=== PATIENT | female | born 1975 | race American Indian/Alaskan Native ===

== ENCOUNTER 2017-09-21 05:41 | Emergency (ER) | payer MEDICAID ==
[2017-09-21] MEDS ORDERED: BENADRYL ONE (05:54)
[2017-09-21] MEDS ORDERED: DECADRON ONE (05:54)
[2017-09-21] MEDS ORDERED: REGLAN ONE (05:54)
[2017-09-21] MEDS ORDERED: REGLAN IV ONE (06:16)
[2017-09-21] MEDS ORDERED: BENADRYL IV ONE (06:16)
[2017-09-21] MEDS ORDERED: DECADRON IV ONE (06:16)
--- NOTE | 2017-09-21 07:30 | Emergency Department Report ---
ED Headache HPI - General Chief Complaint: Headache Stated Complaint: MIGRAINE Source: patient Exam Limitations: no limitations - History of Present Illness Initial Comments: 42 y/o F with a pmhx of depression, anxiety, migraines, and asthma presents with a headache since 4 AM this morning. She states that it was a 15/10 in severity when she came in and she was in so much pain that she was crying. No reported trauma to the head. She states that she took Imitrex with no relief of the pain. Pt states that she has not had a CT of her head in some time. She admits to photophobia, pain increases with loud noises. She also admits to nausea and vomiting at this time. LMP: 09/08/17, denies a chance of pregancy at this time. No chest pain or SOB, or weakness. Timing/Duration: 1-3 hours Quality: severe Head Injury Location: frontal Recent Head Trauma: no recent headache/trauma, other (hx of migraines in the past) Modifying Factors: improves with: medication Associated Symptoms: facial pain, nausea/vomiting, vision changes. denies: stiff neck Allergies/Adverse Reactions: Allergies No Known Allergies Allergy (Verified 09/21/17 05:44) Home Medications: Ambulatory Orders Butalb/Acetamin/Caff 50-325-40 [Fioricet] 1 each PO Q4H PRN #20 tablet 09/21/17 Ondansetron [Zofran Odt] 4 mg PO Q8HR #15 tab.rapdis 09/21/17 ED Review of Systems ROS: Stated complaint: MIGRAINE Other details as noted in HPI Constitutional: denies: chills, fever Eyes: other (photophobia) ENT: denies: ear pain, throat pain Respiratory: denies: cough, shortness of breath, wheezing Cardiovascular: denies: chest pain, palpitations Gastrointestinal: nausea, vomiting Neurological: headache Psychiatric: denies: anxiety, depression Hematological/Lymphatic: denies: easy bleeding, easy bruising ED Past Medical Hx - Past Medical History Previous Medical History?: Yes Hx Headaches / Migraines: Yes Hx Psychiatric Treatment: Yes (Depression) Hx Asthma: Yes - Surgical History Past Surgical History?: Yes Additional Surgical History: Hernia. C-Sec x 3 - Social History Smoking Status: Current Every Day Smoker Substance Use Type: Alcohol - Medications Home Medications: Home Medications Medication Instructions Recorded Confirmed Last Taken Type Butalb/Acetamin/Caff 50-325-40 1 each PO Q4H PRN #20 tablet 09/21/17 Unknown Rx [Fioricet] Ondansetron [Zofran Odt] 4 mg PO Q8HR #15 tab.rapdis 09/21/17 Unknown Rx ED Physical Exam - General Limitations: No Limitations General appearance: alert, in no apparent distress - Head Head exam: Present: other (ttp at the frontal area ) - Expanded Head Exam Expanded Head exam: Present: general tenderness (at the frontal area) - Eye Eye exam: Present: PERRL, EOMI Pupils: Present: normal accommodation - Neck Neck exam: Present: normal inspection, full ROM - Respiratory Respiratory exam: Present: normal lung sounds bilaterally. Absent: respiratory distress - Cardiovascular Cardiovascular Exam: Present: regular rate, normal rhythm. Absent: systolic murmur, diastolic murmur, rubs, gallop - Extremities Exam Extremities exam: Present: normal inspection - Neurological Exam Neurological exam: Present: alert, oriented X3, CN II-XII intact, normal gait - Expanded Neurological Exam Expanded Patient oriented to: Present: person, place, time Speech: Present: fluid speech Cranial nerves: EOM's Intact: Normal, Tongue Deviation: Normal, Facial Sensation : Normal Motor strength exam: RUE: 5, LUE: 5, RLE: 5, LLE: 5 Best Eye Response ([place]): (4) open spontaneously Best Motor Response ([place]ominik): (6) obeys commands Best Verbal Response ([place]ominik): (5) oriented [place] Total: 15 - Psychiatric Psychiatric exam: Present: normal affect, normal mood - Skin Skin exam: Present: warm, dry, intact, normal color. Absent: rash ED Course Vital Signs 09/21/17 09/21/17 09/21/17 05:42 07:24 09:20 Temperature 98.6 F Pulse Rate 84 63 66 Respiratory 20 16 16 Rate Blood Pressure 165/103 152/98 150/97 [Right] O2 Sat by Pulse 99 100 100 Oximetry ED Medical Decision Making - Radiology Data Radiology results: report reviewed Radiologist- CT head- unremarkable study. - Medical Decision Making Due to the severity of the headache a CT noncontrast was conducted, it was unremarkable. Pt was treated in-house with 10 decadron, Benadryl, and Reglan. This helped tremendously with the pain. Case was discussed with Dr. Rodarte, and she was discharged with Fiorcet and Zofran at home. She advised to follow-up with PCP for her elevated BP within the next week. Pt was discharged in stable condition, alert and oriented, and in no resp distress. Critical care attestation.: If time is entered above; I have spent that time in minutes in the direct care of this critically ill patient, excluding procedure time. ED Disposition Clinical Impression: Migraine Qualifiers: Migraine type: unspecified Status migrainosus presence: without status migrainosus Intractability: not intractable Qualified Code(s): G43.909 - Migraine, unspecified, not intractable, without status migrainosus Disposition: TO HOME OR SELFCARE Is pt being admited?: No Does the pt Need Aspirin: No Condition: Stable Instructions: Migraine Headache (ED) Additional Instructions: Please take the medications given to you as needed for the mirgraine. Please follow-up with PCP within this week, a nuerology referral has also been provided to you today please follow-up with them within 3-5 days. Please return to the ER immediately if your presenting symptoms acutely progress or worsen. Advised to follow-up with PCP regarding BP elevation, she verbally stated she will josiah. Prescriptions: Butalb/Acetamin/Caff 50-325-40 [Fioricet] 1 each PO Q4H PRN #20 tablet PRN Reason: Headache Ondansetron [Zofran Odt] 4 mg PO Q8HR #15 tab.rapdis Referrals: [facility] [Outside] - 3-5 Days [facility] [Outside] - 3-5 Days PRIMARY CARE, [Primary Care Provider] - 3-5 Days EFE DAMIAN MD [Staff Physician] - 3-5 Days Forms: Accompanied Note, Work/School Release Form(ED)
--- NOTE | 2017-09-21 09:12 | Cat Scan Report ---
CT HEAD WITHOUT CONTRAST: HISTORY: Severe headache. TECHNIQUE: Sequential 2.5mm CT images. COMPARISON: none. FINDINGS: Cerebral Parenchyma: Within normal limits. Cerebellum: Within normal limits. Brainstem: Within normal limits. Ventricles: Normal. Sella: Normal. Extra-axial spaces: Normal. Basal Cisterns: Normal. Intracranial Hemorrhage: None. Midline Shift: None. Calvarium: Normal. Sinuses: Normal. Mastoid Air Cells: Normal. Visualized Orbits: Normal. IMPRESSION: Cranial CT scan within normal limits.
[2017-09-21 09:20] VITALS: BP 150/97
== END 2017-09-21 09:25 | disposition home or self-care (01) ==
LOC: ED 05:41
DX: G43.909 Migraine, unspecified, not intractable, without status migrainosus (principal)
CPT/HCPCS: 70450; 81025; 96374; 96375; 99284; J1100; J1200; J2765

== ENCOUNTER 2017-11-10 12:34 | Emergency (ER) | payer MEDICAID ==
[2017-11-10] MEDS ORDERED: REGLAN IV ONE (21:02)
[2017-11-10] MEDS ORDERED: BENADRYL IV ONE (21:02)
[2017-11-10] MEDS ORDERED: NACL 0.9% 500 ML 500 ML IV ONE (21:03)
[2017-11-10] MEDS ORDERED: TYLENOL PO ONE (21:03)
--- NOTE | 2017-11-10 21:11 | Emergency Department Report ---
ED Headache HPI - General Chief Complaint: Headache Stated Complaint: MIGRAINE Time Seen by Provider: 11/10/17 21:02 - History of Present Illness Initial Comments: 42-year-old female past medical history migraine headaches and asthma depression presents with complaint of 2-3 days of waxing and waning frontal throbbing headache. Denies any head trauma. Patient is awake alert and oriented 3. States she ran out of Fioricet which has helped her with her migraine headaches in the past. This migraine headache is same quality as her past migraine headaches. Currently 6 out of 10. States that she was not nauseous but is now experiencing some nausea. Denies any neck pain or rigidity. Denies any head trauma. Patient is ambulatory without assistance denies any chest pain palpitations shortness of breath up or lower extremity paresthesias or weakness. Timing/Duration: waxing and waning, other (3 days) Quality: moderate Head Injury Location: frontal Recent Head Trauma: frequent headaches, chronic headaches Modifying Factors: improves with: exposure to light Associated Symptoms: denies symptoms Allergies/Adverse Reactions: Allergies No Known Allergies Allergy (Verified 11/10/17 13:19) Home Medications: Ambulatory Orders Butalb/Acetamin/Caff 50-325-40 [Fioricet] 1 each PO Q4H PRN #20 tablet 09/21/17 Ondansetron [Zofran Odt] 4 mg PO Q8HR #15 tab.rapdis 09/21/17 Butalb/Acetamin/Caff 50-325-40 [Fioricet] 1 tab PO Q6HR PRN #10 tab 11/10/17 Ibuprofen [Motrin] 800 mg PO Q8HR PRN #20 tablet 11/10/17 Metoclopramide HCl [Reglan TAB] 5 mg PO TIDAC PRN #10 tablet 11/10/17 ED Review of Systems ROS: Stated complaint: MIGRAINE Other details as noted in HPI Constitutional: denies: chills, fever Eyes: denies: eye pain, eye discharge, vision change ENT: denies: ear pain, throat pain Respiratory: denies: cough, shortness of breath, wheezing Cardiovascular: denies: chest pain, palpitations Endocrine: no symptoms reported Gastrointestinal: denies: abdominal pain, nausea, diarrhea Genitourinary: denies: urgency, dysuria, discharge Musculoskeletal: denies: back pain, joint swelling, arthralgia Skin: denies: rash, lesions Neurological: headache (2-3 days of intermittent headaches). denies: weakness, paresthesias Psychiatric: denies: anxiety, depression Hematological/Lymphatic: denies: easy bleeding, easy bruising ED Past Medical Hx - Past Medical History Previous Medical History?: Yes Hx Headaches / Migraines: Yes Hx Psychiatric Treatment: Yes (Depression) Hx Asthma: Yes - Surgical History Past Surgical History?: Yes Additional Surgical History: Hernia. C-Sec x 3 - Social History Smoking Status: Never Smoker - Medications Home Medications: Home Medications Medication Instructions Recorded Confirmed Last Taken Type Butalb/Acetamin/Caff 50-325-40 1 each PO Q4H PRN #20 tablet 09/21/17 Unknown Rx [Fioricet] Ondansetron [Zofran Odt] 4 mg PO Q8HR #15 tab.rapdis 09/21/17 Unknown Rx Butalb/Acetamin/Caff 50-325-40 1 tab PO Q6HR PRN #10 tab 11/10/17 Unknown Rx [Fioricet] Ibuprofen [Motrin] 800 mg PO Q8HR PRN #20 tablet 11/10/17 Unknown Rx Metoclopramide HCl [Reglan TAB] 5 mg PO TIDAC PRN #10 tablet 11/10/17 Unknown Rx ED Physical Exam - General Limitations: No Limitations General appearance: alert, in no apparent distress - Head Head exam: Present: atraumatic, normocephalic - Eye Eye exam: Present: normal appearance, PERRL, EOMI - ENT ENT exam: Present: mucous membranes moist - Neck Neck exam: Present: normal inspection - Respiratory Respiratory exam: Present: normal lung sounds bilaterally. Absent: respiratory distress - Cardiovascular Cardiovascular Exam: Present: regular rate, normal rhythm. Absent: systolic murmur, diastolic murmur, rubs, gallop - GI/Abdominal GI/Abdominal exam: Present: soft, normal bowel sounds - Extremities Exam Extremities exam: Present: normal inspection - Back Exam Back exam: Present: normal inspection - Neurological Exam Neurological exam: Present: alert, oriented X3, CN II-XII intact, normal gait - Expanded Neurological Exam Expanded Patient oriented to: Present: person, place, time Cranial nerves: EOM's Intact: Normal, Facial Sensation: Normal Cerebellar function: Finger to Nose: Normal, Heel to [place]: Normal Sensory exam: Upper Extremity Light Touch: Normal, Lower Extremity Light Touch: Normal Motor strength exam: RUE: 5, LUE: 5, RLE: 5, LLE: 5 Best Eye Response (Dominik): (4) open spontaneously Best Motor Response (Dominik): (6) obeys commands Best Verbal Response ([place]): (5) oriented [place] Total: 15 - Psychiatric Psychiatric exam: Present: normal affect, normal mood - Skin Skin exam: Present: warm, dry, intact, normal color. Absent: rash ED Course Vital Signs 11/10/17 13:15 Temperature 98.4 F Pulse Rate 95 H Respiratory 18 Rate Blood Pressure 172/102 O2 Sat by Pulse 97 Oximetry ED Medical Decision Making - Medical Decision Making A/P: Migraine headache 1-headache completely went away as per patient with one dose of Compazine 2-Reglan when necessary for headache, naproxen when necessary for headache 3-follow up with primary care and neurology [email or web address] 4-vital signs stable before discharge. Patient has no neurological deficits on clinical exam. Cranial nerves 2, 3, 4, 5, 6, 7, 8,10, 11, 12 intact on clinical exam, patient is fully lucid awake alert and oriented 3 conversant. Denies any upper or lower extremity paresthesias and has 5/5 strength in bilateral upper and lower extremities on clinical exam. Critical care attestation.: If time is entered above; I have spent that time in minutes in the direct care of this critically ill patient, excluding procedure time. ED Disposition Clinical Impression: Migraine headache Qualifiers: Migraine type: without aura Status migrainosus presence: without status migrainosus Intractability: not intractable Qualified Code(s): G43.009 - Migraine without aura, not intractable, without status migrainosus Disposition: TO HOME OR SELFCARE Is pt being admited?: No Does the pt Need Aspirin: No Condition: Stable Instructions: Migraine Headache (ED), Acute Headache (ED) Additional Instructions: [email or web address] Prescriptions: Butalb/Acetamin/Caff 50-325-40 [Fioricet] 1 tab PO Q6HR PRN #10 tab PRN Reason: Headache Ibuprofen [Motrin] 800 mg PO Q8HR PRN #20 tablet PRN Reason: Headache Metoclopramide HCl [Reglan TAB] 5 mg PO TIDAC PRN #10 tablet PRN Reason: Headache Referrals: [facility] [Outside] - 3-5 Days [facility] [Outside] - 3-5 Days Forms: Work/School Release Form(ED) Time of Disposition: 22:19
[2017-11-10] MEDS ORDERED: COMPAZINE IV ONE (21:17)
[2017-11-11 03:37] VITALS: BP 153/96
== END 2017-11-10 22:37 | disposition home or self-care (01) ==
LOC: ED 12:34
DX: G43.909 Migraine, unspecified, not intractable, without status migrainosus (principal)
CPT/HCPCS: 96374; 96375; 99283; J0780; J1200; J7040

== ENCOUNTER 2018-02-19 02:38 | Emergency (ER) | payer MEDICAID ==
[2018-02-19] MEDS ORDERED: TORADOL IM ONE (06:05)
[2018-02-19] MEDS ORDERED: ZOFRAN IM ONE (06:05)
[2018-02-19] MEDS ORDERED: BENADRYL IM ONE (06:05)
[2018-02-19 06:07] VITALS: BP 148/100
--- NOTE | 2018-02-19 06:09 | Emergency Department Report ---
ED Headache HPI - General Chief Complaint: Headache Stated Complaint: H/A Time Seen by Provider: 02/19/18 06:05 - History of Present Illness Initial Comments: 42-year-old -Thai female comes in complaining of right side of his headache. Patient reports that it started yesterday. She reports taking the Fioricet without relief. She reports that the headaches are throbbing sharp and constant. She reports a sharp sounds and lights make it worse. She complains of nausea and no vomiting. She reports that this is similar to her other headaches in the past. Timing/Duration: 24 hours Quality: severe Head Injury Location: temporal Recent Head Trauma: no recent headache/trauma, occasional headaches Modifying Factors: improves with: exposure to light, movement Associated Symptoms: nausea/vomiting Allergies/Adverse Reactions: Allergies No Known Allergies Allergy (Verified 11/10/17 13:19) Home Medications: Ambulatory Orders Butalb/Acetamin/Caff 50-325-40 [Fioricet] 1 each PO Q4H PRN #20 tablet 09/21/17 Ondansetron [Zofran Odt] 4 mg PO Q8HR #15 tab.rapdis 09/21/17 Butalb/Acetamin/Caff 50-325-40 [Fioricet] 1 tab PO Q6HR PRN #10 tab 11/10/17 Metoclopramide HCl [Reglan TAB] 5 mg PO TIDAC PRN #10 tablet 11/10/17 Ibuprofen [Motrin 800 MG tab] 800 mg PO Q8HR PRN #20 tablet 02/19/18 ED Review of Systems ROS: Stated complaint: H/A Other details as noted in HPI Constitutional: denies: chills, fever Eyes: denies: eye pain, eye discharge, vision change ENT: denies: ear pain, throat pain Respiratory: denies: cough, shortness of breath, wheezing Neurological: headache ED Past Medical Hx - Past Medical History Previous Medical History?: Yes Hx Headaches / Migraines: Yes Hx Psychiatric Treatment: Yes (Depression) Hx Asthma: Yes - Surgical History Past Surgical History?: Yes Additional Surgical History: Hernia. C-Sec x 3 - Social History Smoking Status: Never Smoker Substance Use Type: Alcohol - Medications Home Medications: Home Medications Medication Instructions Recorded Confirmed Last Taken Type Butalb/Acetamin/Caff 50-325-40 1 each PO Q4H PRN #20 tablet 09/21/17 Unknown Rx [Fioricet] Ondansetron [Zofran Odt] 4 mg PO Q8HR #15 tab.rapdis 09/21/17 Unknown Rx Butalb/Acetamin/Caff 50-325-40 1 tab PO Q6HR PRN #10 tab 11/10/17 Unknown Rx [Fioricet] Metoclopramide HCl [Reglan TAB] 5 mg PO TIDAC PRN #10 tablet 11/10/17 Unknown Rx Ibuprofen [Motrin 800 MG tab] 800 mg PO Q8HR PRN #20 tablet 02/19/18 Unknown Rx ED Physical Exam - General Limitations: No Limitations General appearance: alert, in no apparent distress, other (sitting in the dark rocking) - Head Head exam: Present: atraumatic, normocephalic - Eye Eye exam: Present: normal appearance - ENT ENT exam: Present: mucous membranes moist - Expanded Neurological Exam Expanded Cranial nerves: EOM's Intact: Normal, Gag Reflex: Normal, Facial Sensation: Normal Cerebellar function: Finger to Nose: Normal Motor strength exam: RUE: 5, LUE: 5, RLE: 5, LLE: 5 Best Eye Response ([place]): (4) open spontaneously Best Motor Response ([place]): (6) obeys commands Best Verbal Response (Dominik): (5) oriented [place] Total: 15 - Psychiatric Psychiatric exam: Present: normal affect, normal mood - Skin Skin exam: Present: warm, dry, intact, normal color. Absent: rash ED Course Vital Signs 02/19/18 02/19/18 02:57 06:07 Temperature 98.2 F 98.7 F Pulse Rate 76 73 Respiratory 18 17 Rate Blood Pressure 147/105 Blood Pressure 148/100 [Right] O2 Sat by Pulse 98 100 Oximetry - Reevaluation(s) Reevaluation #1: 02/19/18 06:45 Patient reports that her headache feels much better now. ED Medical Decision Making - Medical Decision Making Patient has been evaluated by this provider fast track. Discussed the patient we'll give her IV for Reglan, Benadryl, Toradol. Discussed the patient to follow up with her primary care provider if headaches recur. Critical care attestation.: If time is entered above; I have spent that time in minutes in the direct care of this critically ill patient, excluding procedure time. ED Disposition Clinical Impression: Migraine Qualifiers: Migraine type: unspecified Status migrainosus presence: without status migrainosus Intractability: intractable Qualified Code(s): G43.919 - Migraine, unspecified, intractable, without status migrainosus Disposition: - TO HOME OR SELFCARE Is pt being admited?: No Does the pt Need Aspirin: No Condition: Stable Instructions: Migraine Headache (ED) Additional Instructions: Please take ibuprofen as needed for headache. His symptoms persist or gets worse please follow-up with her primary care provider. Prescriptions: Ibuprofen [Motrin 800 MG tab] 800 mg PO Q8HR PRN #20 tablet PRN Reason: Headache Referrals: CLARITZA CHAVIRA MD [Primary Care Provider] - 3-5 Days Forms: Work/School Release Form(ED), Accompanied Note
[2018-02-19] MEDS ORDERED: REGLAN IV ONE (06:11)
[2018-02-19] MEDS ORDERED: BENADRYL IV ONE (06:11)
[2018-02-19] MEDS ORDERED: TORADOL IV ONE (06:11)
== END 2018-02-19 07:05 | disposition home or self-care (01) ==
LOC: ED 02:38
DX: G43.919 Migraine, unspecified, intractable, without status migrainosus (principal); J45.909 Unspecified asthma, uncomplicated
CPT/HCPCS: 96374; 96375; 99282; J1200; J1885; J2765